=== PATIENT | male | born 2000 | race African-American/Black ===

== ENCOUNTER → 2019-06-10 | Outpatient (CLI) | payer BC ==
[~2019-06-10] MED LIST: IOHEXOL-350 100 ML BOTTLE ONE
== END | disposition home or self-care (01) ==
LOC: CT 09:38
PROVIDERS: ATTEND Specialist
DX: I10 Essential (primary) hypertension (principal); Q79.8 Other congenital malformations of musculoskeletal system
CPT/HCPCS: 74175; Q9967; Z7610